=== PATIENT | male | born 1970 | race Caucasian/White ===

== ENCOUNTER 2016-08-16 10:54 | Emergency (ER) | payer OTHER ==
[2016-08-16 12:23] VITALS: BP 148/81; PULSE 68; RESP 18; TEMP 99; O2SAT 96
[2016-08-16] MEDS ORDERED: LIDOCAINE 2% VISCOUS 15 ML UDCUP PO ONE ×2 (13:11→13:12)
[2016-08-16] MEDS ORDERED: MAG HYDROX/AL HYDROX/SIMETH 30 ML UDCUP PO ONE (13:12)
[2016-08-16] MEDS ORDERED: diphenhydrAMINE 12.5 MG/5 ML UDCUP PO ONE ×2 (13:13→13:26)
--- NOTE | 2016-08-16 13:15 | UCPHY ---
[id number] 4d 08/16/16 13:03 HPI/ROS: CHIEF COMPLAINT: Continued sore throat HISTORY OF PRESENT ILLNESS: 45-year-old immunocompetent male seen in the urgent care 3 days ago for complaints of suspected strep pharyngitis after his had positive strep screen and he has complaints of sore throat. He is given intramuscular injection of Bicillin discharged home. States that he did have relief yesterday however last night sore throat continues. He notes new lesions in his posterior oropharynx. Positive subjective fever and chills. No trismus no drooling. No rash. No other intraoral lesions. No blistering. No ocular complaints. No nausea no vomiting. No diarrhea. No GI complaints. PRIMARY CARE PROVIDER: REVIEW OF SYSTEMS: A ten point review of systems was performed and is negative with the exception of the items mentioned in the HPI PAST MEDICAL & SURGICAL HISTORY: No pertinent medical or surgical history SOCIAL HISTORY: nonsmoker PHYSICAL EXAM (Prior to examination, patient consented to physical exam, hands were washed and my usual and customary physical exam procedures followed) 1) GENERAL: Well-developed, well-nourished, alert and oriented. Appears to be in no acute distress. 2) HEAD: Normocephalic, atraumatic 3) HEENT: Pupils equal, round, reactive to light bilaterally. No injection. Sclera anicteric. Nasopharynx: No lesions. Oropharynx: There are 3 apthous like lesions in his posterior oropharynx. There are tender. There non exudate of the not consistent with strep pharyngitis. There is no asymmetry of the tonsils and no evidence of peritonsillar retropharyngeal abscess. There are no other other lesions in his oropharynx. There is no fissuring or crusting of the lips. Ears bilaterally with normal tympanic membranes. 4) NECK: Full range of motion, no meningeal signs. 5) LUNGS: Clear auscultation bilaterally, no wheezes, no rhonchi, no retractions. 6) HEART: Regular rate and rhythm, no murmur, no heave, no gallop. 7) ABDOMEN: No guarding, no rebound, no focal tenderness, negative McBurney's, negative Pineda's, negative Rovsing's, negative peritoneal sign, 8) MUSCULOSKELETAL: No peripheral edema or discoloration. 9) BACK: No CVA tenderness. 10) SKIN: No rash, no petechiae. 11) Psychiatric: Patient is oriented X 3, there is no agitation. DIFFERENTIAL DIAGNOSIS: in no particular include but limited to strep pharyngitis, oral abscess ulcers, Ibrahim-Yuniel ([place],Rosario Aurora) Constitutional: Initial Vital Signs Temperature (C) 37.2 C 08/16/16 12:19 Heart Rate 68 08/16/16 12:19 Respiratory Rate 18 08/16/16 12:19 Blood Pressure 148/81 H 08/16/16 12:19 O2 Sat (%) 96 08/16/16 12:19 O2 Delivery Mode Room Air Allergies/Adverse Reactions: hydrocodone Allergy (Verified 08/13/16 16:02) Home Medications: Medication Instructions Recorded Lidocaine 2% Viscous 5 ml PO Q4 PRN #100 ml 08/13/16 MDM/Departure - MDM Medications Given: Discontinued Medications Al Hydroxide/Mg Hydroxide (Maalox Susp) 30 ml PO EDNOW ONE Stop: 08/16/16 13:13 Last Admin: 08/16/16 13:15 Dose: 30 ml Diphenhydramine HCl (Benadryl Oral Liquid) 25 mg PO EDNOW ONE Stop: 08/16/16 13:14 Last Admin: 08/16/16 13:20 Dose: 25 mg Diphenhydramine HCl (Benadryl Oral Liquid) 25 mg PO EDNOW ONE Stop: 08/16/16 13:27 Last Admin: 08/16/16 13:15 Dose: 25 mg Lidocaine (Lidocaine 2% Viscous) 30 ml PO EDNOW ONE Stop: 08/16/16 13:13 Last Admin: 08/16/16 13:20 Dose: 30 ml ED Course/Re-evaluation: This patient does not appear septic. He is tolerating his own secretions and is able tolerate oral intake and notes significant moderation of his pain after oral ibuprofen. I think his exam findings are not consistent with strep pharyngitis, not consistent with abscess. He does have a total of 3 visible abscess ulcers and I recommended Magic Mouthwash which we have prepared and given the patient in the urgent care. Do not think that imaging of the neck is currently indicated as I have a low pretest index patient for deep space infection. Doubt Julia as he is otherwise well with with no lesions , no mucous membrane involvement, no rash. Usual customary discharge precautions instructions provided. He feels comfortable being discharged. ( Rosario Wallace) Urgent Care PA supervision Physician documentation: The patient was evaluated and managed by the physician field assistant. My co- signature indicates that I have reviewed this chart and I agree with the findings except that during Durga' discussion he mentions 3 abscess ulcers in the posterior pharynx. I think that this is supposed to read 3 aphthous ulcers ". I am the secondary supervising physician. (Heron Rice) - Depart Disposition: Home, Routine, Self-Care Clinical Impression: Aphthae, oral Condition: Good Instructions: Gingivostomatitis (ED) Additional Instructions: Return to the ER for develop new or worsening symptoms, if you are unable to tolerate oral intake or any other symptoms that concern you Referrals: Matt Taveras MD [Primary Care Provider] - 1-2 days without fail - PQRS PQRS Measurement: n/a (Rosario Wallace)
== END 2016-08-16 13:33 | disposition home or self-care (01) ==
LOC: CED 10:54
DX: K12.0 Recurrent oral aphthae (principal)
CPT/HCPCS: 87400-PO; 87880-PO; 99214-PO; G0463-PO